=== PATIENT | male | born 1980 | race Caucasian/White ===

== ENCOUNTER 2020-05-29 05:29 | Emergency (ER) | payer OTHER ==
[2020-05-29 05:54] LABS: HEMOGLOBIN 17.3 gm/dl (14.0-17.5); RED BLOOD COUNT 6.23 M/UL (4.20-5.50); WHITE BLOOD COUNT 8.9 K/UL (4.5-11.0)
[2020-05-29 06:10] LABS: BUN/CREATININE RATIO 21 (0-10)
== END 2020-05-29 11:13 | disposition home or self-care (01) ==
LOC: ER1 05:29
PROVIDERS: Emergency Medicine
DX: R07.9 Chest pain, unspecified (principal); I10 Essential (primary) hypertension; E11.65 Type 2 diabetes mellitus with hyperglycemia
CPT/HCPCS: 71045; 80053; 82550; 82553; 82962; 83690; 83874; 84484; 85025; 93005; 96374; 99285

== ENCOUNTER → 2020-12-13 | Outpatient (CLI) | payer OTHER, MEDICARE | LOC: SLEEP-COR 10:41 | DX: G47.33 Obstructive sleep apnea (adult) (pediatric) (principal); G47.61 Periodic limb movement disorder | CPT/HCPCS: 95810 ==

== ENCOUNTER 2021-04-04 11:15 | Observation (INO) | payer BC ==
[~2021-04-04] VITALS: Ht 185.4 cm; Wt 165.6 kg
[~2021-04-04 11:15] MED LIST: ATORVASTATIN CA10 MG PO; AUGMENTIN 875-1 EACH PO; CLARITIN10 MG PO; COQ-10100 MG PO; FLONASE 0.05% N16 GM; HYDROCHLOROTHIA25 MG PO; METFORMIN HCL1000 M1 PO; MONTELUKAST SOD10 MG PO; MULTI-VITAMIN1 EACH PO; TOUJEO MAX300 UNIT/1 SQ; TRULICITY3 MG/0.5 M SQ; ZESTRIL/PRINIVI10 MG PO
[2021-04-04 11:58] LABS: RED BLOOD COUNT 5.65 M/UL (4.20-5.50); WHITE BLOOD COUNT 8.6 K/UL (4.5-11.0)
[2021-04-04 12:20] LABS: BUN/CREATININE RATIO 9 (0-10)
[2021-04-04] MEDS ORDERED: OMEGA 3-6-9 CO400 MG PO (14:29)
--- NOTE | 2021-04-05 11:15 | NUR ---
notified pharmacy c/o yassine to reconcile home meds per dr. lovelace
== END 2021-04-06 13:10 | disposition home or self-care (01) ==
LOC: ER1 11:15 → CDU 13:59 → M/S 13:59
PROVIDERS: Emergency Medicine; ADMIT Surgery
PROC: 0DTJ4ZZ Resection of Appendix, Percutaneous Endoscopic Approach (ICD-10-PCS; principal; 2021-04-04 16:35)
DX: K35.80 Unspecified acute appendicitis (principal); Z20.822 Contact with and (suspected) exposure to COVID-19; I10 Essential (primary) hypertension; E11.9 Type 2 diabetes mellitus without complications; E66.01 Morbid (severe) obesity due to excess calories; Z68.42 Body mass index [BMI] 45.0-49.9, adult; Z79.4 Long term (current) use of insulin; Z79.51 Long term (current) use of inhaled steroids; Z79.84 Long term (current) use of oral hypoglycemic drugs; Z79.899 Other long term (current) drug therapy
CPT/HCPCS: 80053; 81001; 82962; 83605; 83690; 85025; 87040; 94760; 96374; 96375; 96376; 99285; G0378; J1100; J1170; J2001; J2250; J2270; J2405; J2543; J2704; J2710; J3010; J7030; J7120; Q9967; U0002

== ENCOUNTER 2021-04-12 22:24 | Observation (INO) | payer BC ==
[~2021-04-12] VITALS: Ht 182.9 cm; Wt 161.0 kg
[~2021-04-12 22:24] MED LIST changes: +OMEGA 3-6-9 CO400 MG PO
[2021-04-13 00:18] LABS: HEMOGLOBIN 14.2 gm/dl (14.0-17.5); RED BLOOD COUNT 5.31 M/UL (4.20-5.50); WHITE BLOOD COUNT 15.3 K/UL (4.5-11.0)
[2021-04-13 00:32] LABS: BUN/CREATININE RATIO 17 (0-10)
[2021-04-13] MEDS ORDERED: AUGMENTIN 500-500 MG PO (09:34)
== END 2021-04-13 14:45 | disposition home or self-care (01) ==
LOC: ER1 22:24 → MED SURG 4 04-13 05:51 → CDU 04-13 05:51 → MED SURG 4 04-13 07:24
PROVIDERS: Physician Assistant; ADMIT Surgery
DX: T81.41XA Infection following a procedure, superficial incisional surgical site, initial encounter (principal); Z20.822 Contact with and (suspected) exposure to COVID-19; L02.211 Cutaneous abscess of abdominal wall; E11.9 Type 2 diabetes mellitus without complications; Z79.4 Long term (current) use of insulin; Z79.84 Long term (current) use of oral hypoglycemic drugs; Z79.51 Long term (current) use of inhaled steroids; Z79.899 Other long term (current) drug therapy
CPT/HCPCS: 80053; 82962; 83605; 85025; 86140; 87040; 87070; 87077; 87186; 87205; 96365; 96366; 96368; 96376; 99285; G0378; J2270; J2543; J3370; J7030; J7070; Q9967; U0002